=== PATIENT | female | born 1950 | race Caucasian/White ===

== ENCOUNTER 2016-09-09 10:12 | Inpatient (IN) | payer MEDICARE, MEDICAID ==
[2016-09-09] VITALS (7 sets, daily range): BP systolic 121–172; BP diastolic 71–89; PULSE 65–79; RESP 15–22; O2SAT 93–99
[~2016-09-09] VITALS: Ht 162.6 cm; Wt 89.5 kg
--- NOTE | 2016-09-09 10:15 | ED.REPORT ---
HPI-Stroke / CVA Sep 09, 2016 ED Provider: Dr. Orion Cotter M.D. A 65 year old female with a medical history including minor seizures, hypertension, diabetes, peripheral neuropathy, and spinal stenosis presents to the ED after being referred by her PCP for right arm weakness onset this morning. One month ago the patient began having balance problems which further worsened five days ago, at which time her reports that she started having trouble thinking and "wasn't making sense." Today, the patient also reports high blood pressure (176 systolic), headache, right hand numbness, epistaxis, and fatigue. Her blood pressure is normally 128-136 systolic. She takes aspirin regularly but has not had a dose today. The patient denies cough, fever, nausea, vomiting, or other symptoms. She experienced diarrhea last week which has now resolved. Nursing Notes Stated Complaint: POSS STROKE Nursing Notes Reviewed: Yes (bookjam, meds not reconciled) Allergies: Coded Allergies: egg (Verified Allergy, Intermediate, Rash, 09/09/16) morphine (Verified Allergy, Intermediate, Hives, 09/09/16) tetracycline (Verified Allergy, Intermediate, Shortness of Breath, 09/09/16 ) Scheduled Aspirin (Aspirin) 81 Mg Tablet 81 MG PO HS (Reported) Cholecalciferol (Vitamin D3) (Vitamin D3) 2,000 Unit Capsule 2,000 UNIT PO DAILY (Reported) Cyanocobalamin (Vitamin B-12) (Vitamin B-12) 500 Mcg Tab.subl 500 MCG SL DAILY ( Reported) Estradiol (Vagifem) 10 Mcg Tablet 10 MCG VAGINAL W,F (Reported) Glipizide (Glipizide) 5 Mg Tablet 2.5 MG PO BID (Reported) Hydrochlorothiazide (Hydrochlorothiazide) 25 Mg Tablet 25 MG PO BID (Reported) Lamotrigine (Lamotrigine) 100 Mg Tablet 200 MG PO BID (Reported) Levothyroxine (Levothyroxine) 75 Mcg Tablet 75 MCG PO QAM (Reported) Magnesium Oxide (Magnesium) 250 Mg Tablet 250 MG PO BID (Reported) Meloxicam (Meloxicam) 7.5 Mg Tablet 7.5 MG PO BID (Reported) Metformin (Metformin) 500 Mg Tablet 500 MG PO BID (Reported) Paroxetine (Paroxetine) 10 Mg Tablet 10 MG PO QAM (Reported) Potassium Chloride (Potassium Chloride) 10 Meq Capsule.er 10 MEQ PO QAM ( Reported) Scheduled PRN Cetirizine HCl (Zyrtec) 10 Mg Capsule 10 MG PO HS PRN PRN For Congestion ( Reported) Epinephrine (Epinephrine) 0.3 Mg/0.3 Ml Auto.injct 0.3 MG IJ ONCE PRN PRN For Anaphyllaxis (Reported) Olopatadine HCl (Olopatadine HCl) 0.1 % Drops 1 DROP AFFECT_EYE BID PRN PRN For Eye Irritation (Reported) Sumatriptan Succinate (Imitrex) 50 Mg Tablet 50 MG PO DIRECTED PRN PRN For Headache (Reported) Tizanidine (Tizanidine) 2 Mg Tablet 2 MG PO DIRECTED PRN PRN For Pain ( Reported) General Time Seen by Provider: 10:31 Chief Complaint Weakness Arm right Hx Obtained From: Patient, Spouse Arrived By: Walk-in Time last known well Five days ago, or longer Sudden in Onset?: Yes Symptom Duration: Since onset Progression Since Onset: Gradually worsening Location: : Head Quality: Painful Severity: Current: Moderate Severity: Maximum: Moderate Associated with: Reports: Confusion, Headache Pertinent Negative: Relieved by nothing Context Related History: Reports: Diabetes mellitus, Seizure disorder Context: Immunizations Tetanus up to date Recent Healthcare: No recent doctor visit Similar Sx Previous: No Risk Factors NIH Stroke Scale Level of Consciousness: Not alert, arousable (1) (Patient will open eyes to command, converses, but is slightly drowsy and does not have normal alertness throughout interview) Ask Month & Age: Both questions right (0) (But slow, gives date in odd format - "Two, zero, one, seven" for the year) Open/Close Eyes/Hand Molder Setter: Performs both tasks (0) Horizontal EO Movements: None (0) Visual Horowitz: No visual loss (0) Facial Palsy: Normal symmetry (0) (Patient refuses to smile, extraordinarily poor effort on request) Right Arm Motor Drift (10s): Some effort v gravity (2) (Initially no effort , but moments later she moves arm in FNF test) Left Arm Motor Drift (10s): No drift 10 sec (0) (Left wrist is limp, does not demonstrate normal strength, question cooperativity) Right Leg Motor Drift (5s): Some effort v gravity (2) Left Leg Motor Drift (5s): No drift 5 sec (0) Limb Ataxia FNF/Heel-Bowman: Ataxia in 2 limbs (2) (Right > Left, but dramatically misses nose, demonstrates she can lift her right arm ) Sensation (Arms/Legs/Face): P-prick dull but felt (1) Language Aphasia: Loss fluency ID matls (1) (Reads all verbiage unusually slowly but without error, but then says she "can't read last word." When naming items patient is slow and calls cactus a tree, calls hammock a bed) Dysarthria: No dysarthria, normal (0) Extinction/Inattention: No exctinct/inattent (0) NIHSS Score: 9 Time NIHSS Performed: 10:22 Date NIHSS Performed: Sep 09, 2016 Past Medical History Past Medical History Localization-related epilepsy Hypertension Diabetes type 2 Peripheral neuropathy Stenosis of cervical spine and lumbar spine Vitamin B12 deficient anaemia Past Surgical History L thumb Cholecystectomy Appendectomy Tonsillectomy Family History Stroke - father Smoking History Never Smoker Social History Other Social History: Good social support, Ambulatory Status Independent Review of Systems Review of Systems Note: + trouble thinking, high blood pressure (176 systolic) Constitutional: Reports: Fatigue, Denies: Fever Ears / Nose / Throat: Reports: Nose bleeding Respiratory: Denies: Non-productive cough, Shortness of breath GI: Reports: Diarrhea (Last week, resolved), Denies: Nausea, Vomiting Neurologic: Reports: Headache, Numbness (Right hand), Problem walking (Balance) , Weakness (Right arm) Complete sys rev & neg: except as marked. Physical Exam Initial Vital Signs Vital Signs (First) Date Time Temp Pulse Resp B/P Pulse Ox O2 Delivery O2 Flow Rate FiO2 09/09/16 10:19 36.9 69 15 172/89 99 Room Air Initial VS: Reviewed, Unavailable (none on chart yet) Skin: Warm, Dry, No cyanosis Psychiatric: Mood/affect normal, Behavior normal, Normal thought content General/Constitutional: Not toxic appearing Alertness: Positive: Responds to verb stimuli Inappropriately fatigued Head / Eyes: Atraumatic, Normocephalic, EOMI Neck: Supple, Full range of motion Respiratory / Chest: Breath sounds NL, Breath sounds = bilat, No respiratory distress Cardiovascular: Heart rate NL, Regular rhythm, Heart sounds NL Neurologic: Oriented X3, Memory NL Mental Status: Positive: Responds to verbal stim Speech: Positive: Slow Focal Weakness: Positive: Lower extremity R, Upper extremity R Sensory Deficit: Positive: Lower extremity R Cerebellar Dysfunction: Positive: Finger-nose abnl Eyes closed but opens to voice and answers questions, inappropriately fatigued See NIH Stroke Scale Interpretation & Diagnostics DIPSTICK 1.015 sp gravity 5 pH + Leukocytes Trace protein 50 Glucose Trace Blood Otherwise negative URINE DRUG SCREEN + Phencyclidine Otherwise Negative Lab Results Interpretation Result Diagram: 09/09/16 1020 09/09/16 1020 Test 09/09/16 10:20 09/09/16 10:38 09/09/16 12:07 White Blood Count 7.4th/mm3 (3.8-10.1) Red Blood Count 4.91mil/mm3 (3.90-5.20) Hemoglobin 14.0g/dL (12.0-15.6) Hematocrit 40.7% (35.0-46.0) Mean Corpuscular Volume 82.9fL (81-100) Mean Corpuscular Hemoglobin 28.5pg (27.0-35.0) Mean Corpuscular Hemoglobin Concent 34.4% (32.0-37.0) Red Cell Distribution Width 13.1% (12.3-15.4) Platelet Count 199bil/L (150-400) Neutrophils (%) (Auto) 74.3% (40-74) Lymphocytes (%) (Auto) 15.5% (14-46) Monocytes (%) (Auto) 6.9% (4-12) Eosinophils (%) (Auto) 2.0% (0-5) Basophils (%) (Auto) 0.5% (0-3) Sodium Level 137mEq/L (134-144) Potassium Level 4.1mEq/L (3.5-5.2) Chloride Level 95mEq/L (97-108) Carbon Dioxide Level 23mmol/L (18-29) Blood Urea Nitrogen 23mg/dL (8-27) Creatinine 1.09mg/dL (0.57-1.00) Estimat Glomerular Filtration Rate 72mL/min (>59) Glucose Level 196mg/dL (60-99) Calcium Level 9.5mg/dL (8.5-10.1) Total Bilirubin 0.7mg/dL (0.0-1.2) Aspartate Amino Transf (AST/SGOT) 20U/L (0-50) Alanine Aminotransferase (ALT/SGPT) 17U/L (0-32) Alkaline Phosphatase 89U/L (25-165) Total Protein 6.9g/dL (6.4-8.4) Albumin 4.4g/dL (3.4-5.0) Prothrombin Time 10.0sec (8.1-12.5) Prothromb Time International Ratio 0.94ratio Urine Color Yellow (YELLOW) Urine Appearance Hazy (CLEAR,HAZY) Urine pH 6.0 (5.0-8.0) Urine Specific [place] 1.015 (1.003-1.035) Urine Protein Negativemg/dL (NEG,TRACE) Urine Glucose (UA) 100mg/dL (NEGATIVE) Urine Ketones Negativemg/dL (NEGATIVE) Urine Occult Blood Negative (NEGATIVE) Urine Nitrite Negative (NEGATIVE) Urine Bilirubin Negative (NEGATIVE) Urine Urobilinogen Normalmg/dL (NORMAL) Urine Leukocyte Esterase Trace (NEGATIVE) Urine RBC 0-2/hpf (0-2) Urine WBC 0-5/hpf (0-5) Urine Epithelial Cells Occasional/hpf (NONE-MOD) Urine Crystals None seen (NONE SEEN) Urine Bacteria Moderate/hpf (NONE-FEW) Urine Hyaline Casts None/lpf (NONE) Urine Granular Casts None seen (NONE SEEN) Urine Waxy Casts None seen (NONE SEEN) Urine Red Blood Cell Casts None seen (NONE SEEN) Urine White Blood Cell Casts None seen (NONE SEEN) Urine Mucus None seen (None Seen) Urine Trichomonas None seen (NONE SEEN) Urine Yeast None (NONE SEEN) Urinalysis Comment None Urine Culture Reflexed Indicated Lab Results Interpretation: CBC normal CMP mild hyperglycemia INR normal struck his aspirin a send out lamotrigine level, which has been sent ECG Interpretation ECG Interpretation: Sinus rhythm rate 72 Time: 11:12 Interpreted by: ED physician X-Ray Chest Interpretation Chest Xray Interpretation: IMPRESSION: Mildly reduced inspiratory volume, no acute disease. Dictated by: Diogenes Crawford M.D. on 09/09/2016 at 10:57 View: Portable, 1 view Interpretation / Wet Read by: Interpret - Radiologist CT Head Interpretation IMPRESSION: No acute intracranial process Dictated by: Chai Lomeli M.D. on 09/09/2016 at 11:20 Study: Head CT no contrast Interpretation / Wet Read by: Interpret - Radiologist Re-Eval/Medical Decision Med Decision/Clinical Course This is a 65-year-old who presents with a complicated story. This is a patient with atypical seizures and is on lamotrigine, but is reportedly not had a seizure since 2013 and compliant with her medications. She presents stating that she been having symptoms of some confusion, and ataxia, and difficulty walking, since the weekend- so an onset time is at least 5 days ago (well outside the window for potential TPA, so the patient is not a candidate for TPA ) and the patient states her has been wanted to get in to be seen as a result of this. This morning she had a minor nosebleed quickly resolved-the states when she has had nosebleeds in the past she has often been very hypertensive, so checked her blood pressure-and it was severely elevated with a systolic of 170+. Her immediately advised her to call her PCP to get scheduled and seen. Her to the , apparently when the patient called she mentioned she was having some right arm and right leg symptoms and weakness, so she is advised to calm directly to the ED by the PCP. The drove her in , and she seemed to be getting worse, more drowsy, right arm and right leg weakness which he did not know occurring even beforehand, but he did notice they were worsening en route, so he drove recklessly to the emergency department. On arrival the patient was brought back and I examined her at first. As stated , given the timeline is greater than 24 hours emergency 5 days the patient is not a candidate for TPA. Additionally she is complaining of headaches, although not at present. On exam, the patient's initially very fatigued, keeps her eyes closed, but will answer questions and provided history, but gives a very poorly motivated exam. My attempt to have her smile, she just has a lip quivering this is despite minutes later, as well as minutes before, she is demonstrating better symmetric facial movement, but I do not overall appreciate a droop. When I go to test motor strength of the extremities, the patient makes almost no effort with the right arm, any when I lifted up its minimal effort falls right to the gurney, however within seconds of my testing, the patient spontaneously picking her arm to do the ataxia testing [id number] she dramatically has difficulties with bilaterally, and misses her nose and hits her face. But it is odd. She cannot lift her right leg up off the gurney. When I go to test speech, she is slow-but reads all of her words off the reading list without difficulty until reaching the last word-which point she states she cannot breathe at work. She is slow at identifying agents and describes the hammock as a bed, and the cactus as a tree. When asked to give the birthdate, she does so slowly, and today's date she presents in and on format of "2-0-1-7" slowl but gets it properly. Overall it some odd presentation. CT noncontrast CT was obtained and was negative. Blood work was normal except for mild hyperglycemia. While in CT scanner there was concern that the patient might have had a seizure per the CT scan staff, I was in a separate patient cannot come directly, the nurse went over and was able to give a milligram of lorazepam, but notes the patient failed an arm drop test and the nurse was not convinced there is a true seizure, and there is rapidly recovered to baseline without a sustained postictal phase. On return from CT, the patient's improved-and the patient continue to make significant improvement over the next hour or 2. By this I mean it when I go back to reexamine her she is now alert and fairly perky, as opposed to the fatigued with eyes closed. Additionally her speech is normal, she cannot use her right arm without any apparent clinical difficulty, but she persists in having right leg weakness and says she cannot lift her leg up off the gurney. The patient was indeed initially mildly hypertensive with blood pressures in the 170s, but without intervention it improved into the 140s. She does not meet criteria for medication administration in the setting of a potential stroke per hospital policy at this time. Certainly her overall presentation is concerning for the possibility of a stroke , presentation however is overall unusual. Seizure and/or psychogenic components are also possible in the differential. As stated above for multiple reasons the patient does not meet TPA criteria. The patient's only followed by the neurologist Dr. Latrice Vásquez, and given the unusual presentation I have consulted partner Dr. hill who is customer service consultant. This point the plan is admission with MRI to continue and complete the stroke evaluation. Dr. hill is requested a lamotrigine level be sent, and so this has been added labs. At time of admission, patient's been marked improvement as described above, but still has ongoing deficits of the R leg. The patient has been seen by speech therapy. The patient has already had low dose aspirin today. (In my opinion I think it makes sense to hold off until the MRI is completed for the data is available to determine not a change to clopidogrel or other medications is indicated) Source of Hx: Old records Re-Evaluation/Progress #1: Time of Eval: 11:19 )( Re-Eval Neurologic Exam: Motor deficit present (Weakness on the right, improved) Patient Status: Condition improved Re-Evaluation/Progress Note: Patient is more alert and coherent. Her headache is still present but feels better. There was concern of a small seizure while in CT but the patient only reports experiencing an aura. Re-Evaluation/Progress #2: Time of Eval: 13:04 Patient Status: Condition improved Re-Evaluation/Progress Note: Patient is dramatically improved. She is alert, not drowsy, and has no right arm weakness. However, she is still experiencing right leg weakness. Discussed with patient and her x-ray and CT results, diagnosis, and plan for admit. Patient agrees with plan for care and all questions were addressed. Consultation #1: Referral / Consult Name: Jin Hill MD Consulted With: Neurology Call Returned at: 12:25 Cream Hauler: Will see patient, Agrees with eval, Agrees with plan Note: Discussed patient's case in length. Will consult Consultation #2: Referral / Consult Name: Sharif Rousseau DO Consulted With: Hospitalist Call Returned at: 12:38 Cream Hauler: Agrees with eval, Agrees with plan, Accepts admit Differential Diagnosis: Positive: Cerebrovascular accident, Seizure disorder, Negative: Atrial fibrillation, Atypical migraine, Electrolyte disorder, Epidural hemorrhage, Hepatic encephalopathy, Hypoglycemia, Intraparench hemorrhage, Meningitis, Sepsis, Subarachnoid hemorrhage, Subdural hemorrhage, Systemic infection Counseled Regarding: Diagnosis, Need for admission Patient Discharge & Departure Impression: Primary Impression: CVA (cerebral vascular accident) CVA mechanism: unspecified Qualified Code: I63.9 - Cerebral infarction, unspecified Additional Impressions: Right sided weakness Hypertension Hypertension type: unspecified secondary hypertension Hypertension goal: unspecified goal Qualified Code: I15.9 - Secondary hypertension, unspecified Epilepsy Epilepsy type: unspecified Intractability: not intractable Status epilepticus: without status epilepticus Qualified Code: G40.909 - Epilepsy, unspecified, not intractable, without status epilepticus Disposition: ADMITTED TO HOSPITAL Discharge Condition All VS Reviewed: Yes Condition: Stable Referrals: Becky Leavitt (PCP) Scribe Attestation Portions of this note were transcribed by Lisandra Avila. I, Dr. Cotter, personally performed the history, physical exam, and medical decision-making; I reviewed and confirmed the accuracy of the information in the transcribed note. Signed by: Liliana Khoury, 09/09/2016, 13:37 copies to: Becky Leavitt Matthew F MD Sep 09, 2016 10:15 LISANDRA AVILA Sep 09, 2016 10:52
[2016-09-09 10:36] LABS: BASOPHILS % (AUTO) 0.5 % (0-3); MONOCYTES % (AUTO) 6.9 % (4-12); Mean Corpuscular Hemoglobin 28.5 pg (27.0-35.0); Mean Corpuscular Volume 82.9 fL (81-100); NEUTROPHILS % (AUTO) 74.3 % (40-74); Platelet Count 199 bil/L (150-400)
[2016-09-09 10:51] LABS: INR 0.94 ratio
--- NOTE | 2016-09-09 10:58 | DRSVH ---
PROCEDURE: X-RAY CHEST ONE VIEW, PORTABLE ([id number]) INDICATIONS: weakness TECHNIQUE: One view of the chest was acquired. COMPARISON: [facility], CR, CHEST 1VW (PORTABLE), 09/13/2012, 12:02. FINDINGS: Surgical changes and devices: None. Lungs and pleura: No pleural effusions or pneumothorax. Lungs are clear. Mediastinum: Mediastinal contours appear normal. Heart size is normal. Bones and chest wall: No suspicious bony lesions. Overlying soft tissues appear unremarkable. IMPRESSION: Mildly reduced inspiratory volume, no acute disease. Dictated by: Diogenes Crawford M.D. on 09/09/2016 at 10:57 Approved by: Diogenes Crawford M.D. on 09/09/2016 at 10:57
--- NOTE | 2016-09-09 11:21 | DRSVH ---
PROCEDURE: CT BRAIN WITHOUT CONTRAST ([id number]) INDICATIONS: r side weakness TECHNIQUE: Noncontrast 4.5 mm thick angled axial sections acquired from the foramen magnum to the vertex, with c oronal reformats. COMPARISON: [facility], CT, BRAIN W/O CONTRAST, 01/26/2013, 15:58. FINDINGS: Image quality: Excellent. CSF spaces: Basal cisterns are patent. No extra-axial fluid collections. The ventricles are symmet ina in size and shape. Brain: No intracranial bleeds or masses. There is cerebral volume loss for age, with resultant vent ricular and sulcal prominence. There are periventricular and deep white matter chronic small vessel ischemic changes. There is intracranial internal carotid artery atherosclerosis. Skull and face: Calvarium and visualized facial bones appear intact, without suspicious lesions. Sinuses: Visualized sinuses and mastoids are clear. IMPRESSION: No acute intracranial process Dictated by: Chai Lomeli M.D. on 09/09/2016 at 11:20 Approved by: Chai Lomeli M.D. on 09/09/2016 at 11:20
[2016-09-09 12:42] LABS: APPEARANCE,URINE HAZY (CLEAR,HAZY); COLOR,URINE YELLOW (YELLOW); OCCULT BLOOD,URINE NEGATIVE (NEGATIVE); UROBILINOGEN,URINE NORMAL (NORMAL)
[2016-09-09] MEDS ORDERED: Alum-Mag Hydrox-Simeth 30 mL Suspension PO PRN (12:45)
[2016-09-09] MEDS ORDERED: Polyethylene Glycol (PEG) 17 Gm Powder PO PRN (12:45)
[2016-09-09] MEDS ORDERED: Ondansetron 2 mg/mL 2 mL Inj IV PRN (12:45)
[2016-09-09] MEDS ORDERED: Labetalol 5 mg/mL 4 mL Inj IVPUSH PRN (12:45)
[2016-09-09] MEDS ORDERED: EPIN0.3P17 IJ (13:50)
[2016-09-09] MEDS ORDERED: ASPI-973 PO (13:50)
[2016-09-09] MEDS ORDERED: LAMO100T2 PO (13:50)
[2016-09-09] MEDS ORDERED: SUMA50TA31 PO (13:50)
[2016-09-09] MEDS ORDERED: HYDR25TA4 PO (13:50)
[2016-09-09] MEDS ORDERED: GLPZ5T PO (13:50)
[2016-09-09] MEDS ORDERED: CETI10CA PO (13:50)
[2016-09-09] MEDS ORDERED: METF500T4 PO (13:54)
[2016-09-09] MEDS ORDERED: MELO-259 PO (13:54)
[2016-09-09] MEDS ORDERED: MAGN250T29 PO (13:54)
[2016-09-09] MEDS ORDERED: LEVO75TA4 PO (13:54)
[2016-09-09] MEDS ORDERED: OLOP5DRO8 AFFECT_EYE (13:54)
[2016-09-09] MEDS ORDERED: CYAN500T53 SL (13:58)
[2016-09-09] MEDS ORDERED: ESTR10TA VAGINAL (13:58)
[2016-09-09] MEDS ORDERED: PARO10TA2 PO (13:58)
[2016-09-09] MEDS ORDERED: POTA10CA42 PO (13:58)
[2016-09-09] MEDS ORDERED: CHOL200047 PO (13:59)
[2016-09-09] MEDS ORDERED: TIZA2TAB3 PO (14:00)
--- NOTE | 2016-09-09 14:17 | NUR ---
Admit nurse note Partial admission assessment completed in the ER. Pt. denies complaints now. Med rec completed per PCP notes and Pharmacy list. Allergies verified and allergy sticker placed. Pt. declines vaccines due to egg allergy. Pt. oriented to room and plan of care.
--- NOTE | 2016-09-09 17:17 | PCM.HPMED ---
Subjective Date of Service Sep 09, 2016 Primary Provider: Admitting Physician: Sharif Rousseau DO Primary Care Physician: Becky Leavitt Attending Physician: Sharif Rousseau DO Admit Status: From the Emergency Department, Admit to Blue Team Chief Complaint: Possible CVA with right arm weakness History of Present Illness: Patient is a pleasant 65 year old female with a medical history significant for minor seizures, hypertension, DM2, and hypothyroidism, presents to ED with sudden onset of right sided weakness while on her way to PT session for her hip pain at [facility]. Patient called her PCP and was advised to go to ED. Patient states her has been noticing patient stumbling, speech abnormalities with patient reports of noticing having difficulty spelling words and writing checks for the past month. Confusion, imbalance, lethargy increased greatly in this past week. Patient also had one episode epistaxis today. Patient states her systolic BP readings at home has been in the mid 130s. Patient denies cough, SOB , fevers, chills, nausea, vomiting, or other symptoms. Patient is followed by Dr. Cabrera for her seizures. In the ED, patient with BP 172/99. Labs significant for creatinine 1.09 and glucose 196, otherwise normal. UA with trace leukocytes, sent for culture. CT brain negative for acute process. Patient admitted and stroke protocol activated. Review of Systems: All ROS reviewed and negative with exception of what is reported in HPI. Allergies Coded Allergies: egg (Verified Allergy, Intermediate, Rash, 09/09/16) morphine (Verified Allergy, Intermediate, Hives, 09/09/16) tetracycline (Verified Allergy, Intermediate, Shortness of Breath, 09/09/16 ) Home Medications Aspirin (Aspirin) 81 Mg Tablet 81 MG PO HS (Reported) Glipizide (Glipizide) 5 Mg Tablet 2.5 MG PO BID (Reported) Hydrochlorothiazide (Hydrochlorothiazide) 25 Mg Tablet 25 MG PO BID (Reported) Lamotrigine (Lamotrigine) 100 Mg Tablet 200 MG PO BID (Reported) Levothyroxine (Levothyroxine) 75 Mcg Tablet 75 MCG PO QAM (Reported) Magnesium Oxide (Magnesium) 250 Mg Tablet 250 MG PO BID (Reported) Meloxicam (Meloxicam) 7.5 Mg Tablet 7.5 MG PO BID (Reported) Metformin (Metformin) 500 Mg Tablet 500 MG PO BID (Reported) Scheduled PRN Cetirizine HCl (Zyrtec) 10 Mg Capsule 10 MG PO HS PRN PRN For Congestion ( Reported) Epinephrine (Epinephrine) 0.3 Mg/0.3 Ml Auto.injct 0.3 MG IJ ONCE PRN PRN For Anaphyllaxis (Reported) Olopatadine HCl (Olopatadine HCl) 0.1 % Drops 1 DROP AFFECT_EYE BID PRN PRN For Eye Irritation (Reported) Sumatriptan Succinate (Imitrex) 50 Mg Tablet 50 MG PO DIRECTED PRN PRN For Headache (Reported) PMH Localization-related epilepsy Hypertension Diabetes type 2 Peripheral neuropathy Stenosis of cervical spine and lumbar spine Vitamin B12 deficient anaemia Surgical History L thumb Cholecystectomy Appendectomy Tonsillectomy Family History Stroke - father Social History Hx Alcohol Use: No Hx Substance Use: No Smoking Status: Never Smoker Living Arrangement: with Family Exam Vital Signs Vital Sign - Last Date Time Temp Pulse Resp B/P Pulse Ox O2 Delivery O2 Flow Rate FiO2 09/09/16 14:37 70 20 141/80 93 Room Air 09/09/16 12:55 36.9 Exam Gen: NAD, laying comfortably in bed HEENT: NCAT. PERRL, EOMI No sclera icterus. Neck supple, pink mucous membranes Cardio: Regular rate and rhythm, no murmurs appreciated. . Lungs: CTAB Abd: Soft, obese, non-tender, normal bowel tones Ext: No edema, no clubbing. Skin: Warm, dry and intact Psych: Alert and oriented, normal speech, normal mood and affect Neuro: CN II-XII grossly intact. Facial sensation decreased on right. Decreased hearing on left. Delayed and inaccurate finger to nose, hand flap, and lazar to ankle motions on right. Negative rhomberg.4/5 supervisor spinning strength on right, otherwise 5/5 strength and sensation intact throughout all extremities. Otherwise no focal neuro deficits. Lab and Diagnostics Result Diagram: 09/09/16 1020 09/09/16 1020 X-Rays, CTs and MRIs Date of Service: 09/09/16 1026 PROCEDURE: X-RAY CHEST ONE VIEW, PORTABLE ([id number]) IMPRESSION: Mildly reduced inspiratory volume, no acute disease. Dictated by: Diogenes Crawford M.D. on 09/09/2016 at 10:57 Date of Service: 09/09/16 1026 PROCEDURE: CT BRAIN WITHOUT CONTRAST ([id number]) INDICATIONS: r side weakness IMPRESSION: No acute intracranial process Dictated by: Chai Lomeli M.D. on 09/09/2016 at 11:20 Assessment & Plan 65 year old female with hx of minor seizures, hypertension, diabetes, peripheral neuropathy, and spinal stenosis presents to the ED after being referred by her PCP for right arm weakness onset this morning. Associated symptoms of high blood pressure (176 systolic), headache, right hand numbness, epistaxis, and fatigue. Admitted for possible CVA. Elevated blood pressures with headache and right sided weakness, present on admission. Active. -Ddx: Possible CVA, can not rule out seizures since patient has hx of minor seizures with last one being last summer, MS also a possibility -NIHSS scale 9 -CXR, CT brain negative for any acute process -MRI brain pending -Appreciate neurology consult with time and expertise - patient seen by Dr. Cabrera for her seizures -telemetry -PT/OT/speech swallow eval pending Hypertension, present on admission. Active. -continue home dose HCTZ Diabetes mellitus Type 2 -metformin and glipizide held -medium correctional dose insulin protocol Spinal stenosis with chronic back pain -continue home dose meloxicam Hx of minor seizures -continue home dose lamotrigine Hypothyroidism -continue home med Allergic eyes -continue home med DVT prophy: Heparin SubQ, SCD GI prophy: not indicated CODE: FULL Dispo: Anticipate discharge in 1-2 days. GI Prophylaxis: Not indicated VTE Prophylaxis: Sub-Q Heparin (Unfractionated) Resuscitation Status: CPR: Attempt Resuscitation Time spent 45 minutes Attending Statement I have seen and evaluated patient at bedside in addition to directly supervising care provided by resident physician. I agree with above documentation. Malorie Collins DO Sep 09, 2016 16:17 Sharif Rousseau DO Sep 10, 2016 09:02
[2016-09-09] MEDS ORDERED: TIZANIDINE 2 MG PO PRN (17:35)
[2016-09-09] MEDS ORDERED: OLOPATADINE HCL AFFECT_EYE PRN (17:35)
[2016-09-09] MEDS ORDERED: Glucose 40% Oral Gel 15 Gm Tube PO PRN (17:55)
--- NOTE | 2016-09-09 19:50 | NUR ---
Admit to [facility] Pt admitted to room 3011. Pt denies any pain, VSS, Tele SR. Pt able to transfer to [facility] without difficulty but does express that she is weaker. Reviewed plan of care and fall precautions with pt. Stressed importance of using call light for all needs and transfers out of bed. CVA booklet provided and reviewed with pt. Pt calm and coop with care.
--- NOTE | 2016-09-09 20:05 | DRSVH ---
PROCEDURE: MRI STROKE PROTOCOL ([id number]) Pre- and post-contrast brain MRI, non-contrast brain MR angiogram, pre- and postcontrast neck MR mayra ogram INDICATIONS: R weakness TECHNIQUE: Brain: Noncontrast axial T1 spin echo, axial T2 fast spin echo, sagittal and axial FLAIR, coronal T2 fast spin echo, axial gradient echo, axial diffusion and ADC through the brain. After the administr ation of contrast, axial 3D VIBE of the cranial vasculature and brain. Brain MRA: Non-contrast 3-D time of flight MR angiogram, with multiple lmkgawz-uatcfxota-smnksakrbf (MIP) reformats performed. Neck MRA: Axial and sagittal TruFISP through the neck. Coronal dynamic MR angiogram during administ ration of contrast in the arterial and venous phases, with 3-dimenstional wtfbbua-guvmcdzsr-pgwalgfso n (MIP) reformats constructed from subtraction images. COMPARISON: [facility], CT, CT BRAIN WO CON, 09/09/2016, 10:40. FINDINGS: Image quality: Limited by motion artifact. BRAIN: CSF spaces: Ventricles are normal in size and shape. Basal cisterns are patent. No extra-axial flu id collections. Brain: No intracranial bleeds or mass effects. Ramirez-white matter interface is normal. Diffusion we ighted images show no acute ischemic insults. A few, small, punctate foci of increased T2 signal are noted in the frontal periventricular and subcortical white matter tracts. Brainstem appears normal. Normal intravascular flow voids are present. No abnormal intracranial enhancement. Normal enhanceme nt of the dural sinuses is noted. Skull and face: Calvarial marrow signal is normal. Orbits appear normal. Sinuses: Sinuses and mastoids are clear. BRAIN MR ANGIOGRAM: Anterior circulation: Intracranial internal carotid arteries are normal in size and enhancement. Th e flow within the paired anterior cerebral arteries is normal and symmetric. The flow within the mid dle cerebral arteries is normal and symmetric. The anterior communicating artery is seen. No stenos es, occlusions, or aneurysms. Posterior circulation: The visualized portions of the vertebral arteries demonstrate normal caliber, and join to form a normal appearing basilar artery. The flow within the posterior cerebral arteries is normal and symmetric. The P1 segment of the right posterior cerebral artery congenitally hypopla stic. Normal flow is noted in the posterior communicating arteries bilaterally. No stenoses, occlusi ons, or aneurysms. NECK MR ANGIOGRAM: Carotids: Great vessels demonstrate a conventional anatomy as they arise from the aortic arch. The origins of the common carotid arteries appear patent. The calibers and courses of both common caroti d arteries are normal. The bifurcation regions appear normal bilaterally. The internal carotid cruz britt demonstrate normal course and caliber. Posterior circulation: The origins of the vertebral arteries appear patent. More superior portions of both vertebral arteries demonstrate normal course and caliber, and join to form a normal appearing basilar artery. Miscellaneous: Subclavian arteries appear patent. Pre-contrast images through the neck show no soft tissue abnormalities. IMPRESSION: BRAIN MRI: 1. No acute intracranial disease process. 2. No areas of acute or chronic infarction. 3. Mild, diffuse volume loss. 4. Minimal periventricular and subcortical white matter chronic microvascular ischemic changes. BRAIN MR ANGIOGRAM: Negative examination. NECK MR ANGIOGRAM: Negative examination. The estimate of stenosis included in the report of the imaging study was calculated using the NASCET method Dictated by: Xochilt Torres MD, PhD on 09/09/2016 at 20:03 Approved by: Xochilt Torres MD, PhD on 09/09/2016 at 20:03
--- NOTE | 2016-09-09 20:18 | NUR ---
Case Management: ZEV explained to patient at 1999, all questions answered. Signed copy placed in chart, pt given a copy. "How Medicare Covers Self-Administered Drugs Given in Hospital Outpatient Settings" given to patient. Vicky Dumas RN
[2016-09-09] MEDS: Insulin LISPRO 300 Unit/3 mL Inj SUBQ SCH (21:26)
[2016-09-09] MEDS: lamoTRIgine 100 mg Tablet PO SCH (21:27)
[2016-09-10] VITALS (7 sets, daily range): BP systolic 123–152; BP diastolic 66–83; PULSE 63–73; RESP 16–20; O2SAT 96–98
[2016-09-10 06:04] LABS: Mean Corpuscular Hemoglobin 28.7 pg (27.0-35.0); Mean Corpuscular Volume 83.4 fL (81-100)
[2016-09-10] MEDS: PARoxetine 20 mg Tablet PO SCH (10:15)
[2016-09-10] MEDS: lamoTRIgine 100 mg Tablet PO SCH ×2 (10:15→20:46)
[2016-09-10] MEDS: Insulin LISPRO 300 Unit/3 mL Inj SUBQ SCH ×4 (10:31→22:00)
--- NOTE | 2016-09-10 10:41 | PCM.PNMED ---
Subjective Date of Service Sep 10, 2016 Subjective No overnight events. Patient with no complaints. Interested to know the results of her MR imaging. Denies GRANDE, vision changes, nausea or vomiting. Exam Vital Signs Vital Sign - Last Date Time Temp Pulse Resp B/P Pulse Ox O2 Delivery O2 Flow Rate FiO2 09/10/16 06:09 73 09/10/16 04:37 36.4 18 152/69 97 Room Air Intake and Output 09/09/16 09/09/16 09/10/16 Cumulative From/Thru 15:00 23:00 07:00 09/09/16 10:19 - 09/10/16 06:32 Intake Total 400 ml 400 ml Balance 400 ml 400 ml Intake Oral 400 ml 400 ml # Voids 5 5 # Bowel Movements 0 0 Exam Gen: NAD, laying comfortably in bed HEENT: NCAT. PERRL, EOMI No sclera icterus. Neck supple, pink mucous membranes Cardio: Regular rate and rhythm, no murmurs appreciated. . Lungs: CTAB Abd: Soft, obese, non-tender, normal bowel tones Ext: No edema, no clubbing. Skin: Warm, dry and intact Psych: Alert and oriented, normal speech, normal mood and affect Neuro: CN II-XII grossly intact. Facial sensation mildly decreased on right .4/ 5 drawer in strength on right, otherwise 5/5 strength and sensation intact throughout all extremities. Otherwise no focal neuro deficits. IVs and Medications Medications Reviewed: Medications were reviewed in detail Lab and Diagnostics Result Diagram: 09/10/16 0510 09/10/16 0510 X-Rays, CTs and MRIs Date of Service: 09/09/16 1026 PROCEDURE: X-RAY CHEST ONE VIEW, PORTABLE ([id number]) IMPRESSION: Mildly reduced inspiratory volume, no acute disease. Dictated by: Diogenes Crawford M.D. on 09/09/2016 at 10:57 Date of Service: 09/09/16 1026 PROCEDURE: CT BRAIN WITHOUT CONTRAST ([id number]) INDICATIONS: r side weakness IMPRESSION: No acute intracranial process Dictated by: Chai Lomeli M.D. on 09/09/2016 at 11:20 Assessment & Plan 65 year old female with hx of minor seizures, hypertension, diabetes, peripheral neuropathy, and spinal stenosis presents to the ED after being referred by her PCP for right arm weakness onset this morning. Associated symptoms of high blood pressure (176 systolic), headache, right hand numbness, epistaxis, and fatigue. Admitted for possible CVA. Elevated blood pressures with headache and right sided weakness, present on admission. Improving. -Ddx: Possible CVA, can not rule out seizures since patient has hx of minor seizures with last one being last summer, MS also a possibility -NIHSS scale 9 -CXR, CT brain negative for any acute process -MRI brain negative for any acute process -Appreciate neurology consult with time and expertise - patient followed by Dr. Borden for her seizures -telemetry -Speech swallow passed -PT/OT eval pending Hypertension, present on admission. Active. -continue home dose HCTZ Diabetes mellitus Type 2 -metformin and glipizide held -medium correctional dose insulin protocol Spinal stenosis with chronic back pain -continue home dose meloxicam Hx of minor seizures -continue home dose lamotrigine Hypothyroidism -continue home med Allergic eyes -continue home med DVT prophy: Heparin SubQ, SCD GI prophy: not indicated CODE: FULL Dispo: Anticipate discharge in 1-2 days. GI Prophylaxis: Not indicated VTE Prophylaxis: Sub-Q Heparin (Unfractionated) Resuscitation Status: CPR: Attempt Resuscitation Time spent 30 minutes Attending Statement I have seen and evaluated patient at bedside and directly supervised care provided by resident physician. I agree with above documentation. Malorie Collins DO Sep 10, 2016 09:43 Sharif Rousseau DO Sep 10, 2016 10:41
--- NOTE | 2016-09-10 17:13 | NUR ---
Inpatient status effective today, [facility] signed
--- NOTE | 2016-09-10 20:01 | CONS ---
[address] [address] CONSULTATION REPORT PATIENT: MOY BRAVO : 1950 MR#: [id number] ADMIT: 09/09/2016 JOB ID: [id number] DATE OF SERVICE: 09/10/2016 NEUROLOGY CONSULTATION: CHIEF COMPLAINT: Multiple neurologic symptoms. REQUESTING PROVIDER: Dr. Orion Cotter HISTORY OF PRESENTING ILLNESS: The patient is a very pleasant, 65-year-old woman who is a patient of my partner, Dr. Jennifer Cabrera, with multiple medical problems, including a history of peripheral neuropathy, spinal stenosis, and a history of seizure disorder, who presented to the emergency department after being referred by her primary care physician to seek emergency attention for various neurologic symptoms. Dr. Orion Cotter contacted me from the emergency department. Reportedly approximately one month ago the patient started noticing having difficulty with balance. She noted that five days ago her imbalance worsened and her noted confusion. She herself also noted the sudden onset of right arm weakness. She reports that she checks her blood pressures on a regular basis and noted that her blood pressure has recently been elevated. She also noted the development of a headache, right upper extremity weakness, epistaxis, and fatigue. She reports that her blood pressures are generally run from 120-130 systolic. She takes aspirin on a daily basis. Reportedly she developed diarrhea last week which has now resolved. She has noted confusion, imbalance, and lethargy, which increased this past week. She does report that she occasionally has auras, however has not noted a generalized tonic-clonic seizure prior to arriving in the emergency department. When she was seen in the emergency department, the emergency department physician noted that she would open her eyes to command and converse, but was noted to be slightly drowsy and appeared confused. She was also noted to have right upper and right lower extremity weakness and reportedly also appeared to have slowed cognition when he performed the NIH stroke scale, which he gave a score of 9. A CT of her head was performed which was unremarkable. A Lamictal level was ordered. There was a concern for a possible stroke. Today when I saw the patient and this morning she reports that she is back to her baseline. She reports no history of transient ischemic attacks or strokes. Incidentally she does report that she had a generalized tonic-clonic seizure which occurred when she was coming back from the CT scan. She reports that she has not had any recent seizure in over a year. She reports today that she feels back to her baseline and has not noted any new neurologic symptoms. She denies any headache presently. LABORATORY STUDIES: WBC of 7.4, hemoglobin 14.0, hematocrit 40.7, and platelets of 199. Neutrophils 74.3%. Chemistries: Sodium 137, potassium 4.1, chloride 95, bicarb 23, BUN 23, creatinine 1.09, and glucose of 196. LFTs were within normal limits. TSH 0.998. Lamotrigine pending. A urinalysis hazy with occasional urine epithelial cells, otherwise unremarkable. PT was 10.0, INR 0.94. Chest x-ray: Mildly reduced inspiratory volume. No acute disease. CT of her head: No acute intracranial process. I reviewed her MRI stroke protocol in detail which demonstrated no acute intracranial disease process. No areas of acute or chronic infarction. Mild diffuse volume loss. Minimal periventricular and subcortical white matter chronic microvascular ischemic changes. No evidence of stenosis on her MRA of the brain and neck. Urine culture: Mixed urogenital nolan. PAST MEDICAL HISTORY: Remarkable for seizure disorder, hypertension, diabetes mellitus type 2, peripheral neuropathy, cervical and lumbar stenosis, vitamin B12 deficient anemia. PAST SURGICAL HISTORY: Surgery on her left thumb, cholecystectomy, appendectomy, tonsillectomy. FAMILY HISTORY: Stroke in her father. SOCIAL HISTORY: No tobacco, alcohol, or drugs. Lives with her family. ALLERGIES: EGG, MORPHINE, AND TETRACYCLINE. HOME MEDICATIONS: Aspirin 81 mg, glipizide 2.5 mg p.o. b.i.d., hydrochlorothiazide 25 mg p.o. b.i.d., lamotrigine 200 mg p.o. b.i.d., levothyroxine 75 mcg p.o. q.a.m., magnesium oxide 250 mg p.o. b.i.d., meloxicam 7.5 mg p.o. b.i.d., and metformin 500 mg p.o. b.i.d. She also takes the following p.r.n.: Zyrtec, epinephrine, olopatadine, and Imitrex. REVIEW OF SYSTEMS: A complete review of systems was performed and was remarkable for above noted. PHYSICAL EXAMINATION: Temperature 36.4, pulse of 67, respiratory rate of 18, blood pressure 152/69, pulse oximetry 97% on room air. General: She is a well-developed, well-nourished woman in no acute distress. Head: Normocephalic, atraumatic. Neck: Supple. No carotid bruits were auscultated. Chest: Clear to auscultation. Heart: Regular rate and rhythm. Abdomen: Soft, nondistended, nontender. Extremities: No cyanosis, clubbing, or edema. NEUROLOGIC EXAMINATION: Mental status: She is awake, alert, and oriented x3. Speech clear and fluent, with intact comprehension. There was no aphasia. Cranial nerves: Pupils equal, round, and reactive to light. Extraocular movements were smooth and conjugate, with no evidence of nystagmus. Face appeared symmetrical. Facial sensation was intact to light touch and temperature. Auditory sensation was intact to finger rub. Palatal elevation was symmetrical. Tongue was midline. Sternocleidomastoid and trapezii are 5/5 bilaterally. There was no dysarthria. Motor: Normal tone and bulk. Muscle strength 5/5 throughout. Sensation was intact to light touch and temperature, with the exception of in a bilateral stocking distribution in the distal lower extremities where it diminished to light touch, temperature, and pinprick. There was no pronator drift noted. Coordination: Mvmrwe-iu-coks was intact, without evidence of dysmetria. Deep tendon reflexes were 1+ in the upper extremities, 2+ at the patellae bilaterally, trace at the Achilles bilaterally. Plantars demonstrated withdrawal bilaterally. Gait was deferred. ASSESSMENT AND RECOMMENDATION: Given her clinical history, especially her history of localization-related seizure disorder, my concern is that this may have been a seizure followed by Glenroy's paralysis. My recommendation is that she continue seizure medications. We are awaiting a Lamictal level. It is unclear from the history what may have lowered her seizure threshold. I would continue to optimize control of her potential TIA/stroke risk factors including diabetes and hypertension. In the differential also is a complicated migraine. Although a transient ischemic attack could certainly present in a similar fashion, it appears less likely given the clinical history, today's physical examination, and review of MR imaging studies. My recommendation would be to continue Lamictal and to optimize control of stroke risk factors. In the event that this does represent a transient ischemic attack, my recommendation would be to continue to optimize control of her diabetes, which is her primary stroke risk factor, as well as her hypertension, although her blood pressures here have only remained mildly elevated. Another possibility is a form of hypertensive encephalopathy; however, usually this is noted when blood pressures are significantly higher than the blood pressures that have been measured here and were documented as measured at home. I also do recommend seizure and fall precautions. We did discuss driving, heights, and swimming alone. On review of records in her chart it appears that a generalized tonic-clonic seizure was witnessed by nursing staff and the ultrasound technician. The patient was reportedly noted to have a generalized tonic-clonic seizure and was noted to have a failed arm drop test. Ativan 1 mg was given and reportedly seizure activity stopped after 2 minutes. At that time, she was connected to a display fabrication supervisor and vital signs were noted to be stable. In light of this information, I suspect that the stroke-like symptoms noted in the emergency department may have been Glenroy's paralysis associated with a postictal state. I would recommend that she stay overnight one more night for closer observation neurologically. I would recommend seizure and fall precautions. She reports no history of fevers, chills, nausea or vomiting, or neck stiffness or neck pain. Examination reveals a negative Kernig and a negative Brudzinski. There is no white count noted. There is no evidence of fever. We are presently awaiting a Lamictal level. If she does have another seizure, I would recommend loading with Keppra 1000 mg IV followed by maintenance Keppra 500 mg twice daily. We discussed the differential diagnosis for her symptoms in detail. I reviewed her imaging studies with her. I recommend that she follow up with her primary care provider within one week and follow up with Dr. Cabrera as an outpatient in the Neurology Clinic. Thank you, again, for this consultation, Dr. Orion Cotter. Please feel free to contact me with any questions or concerns. PRIMITIVO
[2016-09-11 01:25] VITALS: BP 128/74; PULSE 64; RESP 18; O2SAT 98
[2016-09-11 04:28] VITALS: BP 161/84; PULSE 73; RESP 16; O2SAT 96
[2016-09-11 05:50] VITALS: PULSE 65
[2016-09-11 06:49] LABS: Mean Corpuscular Hemoglobin 28.6 pg (27.0-35.0); Mean Corpuscular Volume 83.4 fL (81-100)
[2016-09-11] MEDS: PARoxetine 20 mg Tablet PO SCH (08:06)
[2016-09-11] MEDS: lamoTRIgine 100 mg Tablet PO SCH (08:08)
[2016-09-11] MEDS: Insulin LISPRO 300 Unit/3 mL Inj SUBQ SCH ×2 (08:10→11:35)
[2016-09-11] MEDS ORDERED: LISI-571 PO (11:27)
--- NOTE | 2016-09-11 11:35 | PCM.DIMED ---
Malorie Collins DO 09/11/16 1126: Discharge Instructions Date of Service Sep 11, 2016 Dates of Hospitalization Sep 09, 2016 at 13:48 Discharge Diagnosis Discharge Diagnosis Elevated blood pressures with headache and right sided weakness, present on admission. Hypertension, present on admission. Diabetes mellitus Type 2 Spinal stenosis with chronic back pain Hx of minor seizures Hypothyroidism Allergic eyes Medication Instructions New medication: Lisinopril 5mg PO daily Diet Diabetic Activity Limited until seen by PCP Call your provider Chest pain, Weakness (unilateral) Patient Instructions We have added one new medication during this hospitalization. Lisinopril 5mg one daily by mouth. Please follow up with your PCP, Becky Leavitt in 2 weeks. You have an appointment with your neurologist, Dr. Cabrera in November, please call to see if you can get in sooner if symptoms reoccur. Go to the ED if you have any sudden onset of headaches, vision changes, unilateral weakness or chest pain. Follow-up plan Patient to have outpatient physical therapy. Follow-up Provider: Becky Leavitt Follow-up with PCP in: 2 weeks Sharif Rousseau DO 09/11/16 1507: Discharge Instructions Attending's Statement Read and agree Malorie Collins DO Sep 11, 2016 11:26 Sharif Rousseau DO Sep 11, 2016 15:07
--- NOTE | 2016-09-11 11:39 | PCM.DC.MED ---
Discharge Summary Date of Service Sep 11, 2016 Dates of Hospitalization Date of Hospital Admission Sep 09, 2016 at 13:48 Date of Discharge: Sep 11, 2016 Providers: Admitting Physician: Sharif Rousseau DO Primary Care Physician: Becky Leavitt Attending Physician: Sharif Rousseau DO Diagnosis at Time of Discharge Diagnosis at Time of Discharge Elevated blood pressures with headache and right sided weakness, present on admission. Hypertension, present on admission. Diabetes mellitus Type 2 Spinal stenosis with chronic back pain Hx of minor seizures Hypothyroidism Allergic eyes Consultations Neurology: Jin Cox MD Procedures XRay, CTs & MRIs Date of Service: 09/09/16 1026 PROCEDURE: X-RAY CHEST ONE VIEW, PORTABLE ([id number]) IMPRESSION: Mildly reduced inspiratory volume, no acute disease. Dictated by: Diogenes Crawford M.D. on 09/09/2016 at 10:57 Date of Service: 09/09/16 1026 PROCEDURE: CT BRAIN WITHOUT CONTRAST ([id number]) INDICATIONS: r side weakness IMPRESSION: No acute intracranial process Dictated by: Chai Lomeli M.D. on 09/09/2016 at 11:20 Date of Service: 09/09/16 1245 PROCEDURE: MRI STROKE PROTOCOL ([id number]) Pre- and post-contrast brain MRI, non-contrast brain MR angiogram, pre- and postcontrast neck MR angiogram IMPRESSION: BRAIN MRI: 1. No acute intracranial disease process. 2. No areas of acute or chronic infarction. 3. Mild, diffuse volume loss. 4. Minimal periventricular and subcortical white matter chronic microvascular ischemic changes. BRAIN MR ANGIOGRAM: Negative examination. NECK MR ANGIOGRAM: Negative examination. The estimate of stenosis included in the report of the imaging study was calculated using the NASCET method Dictated by: Xochilt Torres MD, PhD on 09/09/2016 at 20:03 Brief History Patient is a pleasant 65 year old female with a medical history significant for minor seizures, hypertension, DM2, and hypothyroidism, presents to ED with sudden onset of right sided weakness while on her way to PT session for her hip pain at [facility]. Patient called her PCP and was advised to go to ED. Patient states her has been noticing patient stumbling, speech abnormalities with patient reports of noticing having difficulty spelling words and writing checks for the past month. Confusion, imbalance, lethargy increased greatly in this past week. Patient also had one episode epistaxis today. Patient states her systolic BP readings at home has been in the mid 130s. Patient denies cough, SOB , fevers, chills, nausea, vomiting, or other symptoms. Patient is followed by Dr. Cabrera for her seizures. In the ED, patient with BP 172/99. Labs significant for creatinine 1.09 and glucose 196, otherwise normal. UA with trace leukocytes, sent for culture. CT brain negative for acute process. Patient admitted and stroke protocol activated. Hospital Course 65 year old female with hx of minor seizures, hypertension, diabetes, peripheral neuropathy, and spinal stenosis presents to the ED after being referred by her PCP for right arm weakness onset this morning. Associated symptoms of high blood pressure (176 systolic), headache, right hand numbness, epistaxis, and fatigue. Admitted for possible CVA. MRI brain was negative for any acute process. Acute right sided weakness resolved. Neurology was consulted and believed this was not a CVA/TIA. Patient to follow up with PCP, Becky Leavitt in [address] Cabrera her neurologist when next available. Elevated blood pressures with headache and right sided weakness, present on admission. Improving. -Ddx: Possible CVA, can not rule out seizures since patient has hx of minor seizures with last one being last summer, MS also a possibility -NIHSS scale 9 -CXR, CT brain negative for any acute process -MRI brain negative for any acute process -Appreciate neurology consult with time and expertise - patient followed by Dr. Borden for her seizures -telemetry -Speech swallow passed -PT/OT eval pending Hypertension, present on admission. Active. -continue home dose HCTZ Diabetes mellitus Type 2 -metformin and glipizide held -medium correctional dose insulin protocol Spinal stenosis with chronic back pain -continue home dose meloxicam Hx of minor seizures -continue home dose lamotrigine Hypothyroidism -continue home med Allergic eyes -continue home med DVT prophy: Heparin SubQ, SCD GI prophy: not indicated CODE: FULL Dispo: Anticipate discharge in 1-2 days. Exam Vital Signs (Last) Date Time Temp Pulse Resp B/P Pulse Ox O2 Delivery O2 Flow Rate FiO2 09/11/16 05:50 65 09/11/16 04:28 36.7 16 161/84 96 Room Air Exam Gen: NAD, sitting up in bed eating her breakfast HEENT: NCAT. PERRL, EOMI No sclera icterus. Neck supple, pink mucous membranes Cardio: Regular rate and rhythm, no murmurs appreciated. . Lungs: CTAB Abd: Soft, obese, non-tender, normal bowel tones Ext: No edema, no clubbing. Skin: Warm, dry and intact Psych: Alert and oriented, normal speech, normal mood and affect Neuro: CN II-XII grossly intact. No focal deficits. Test 09/09/16 10:20 09/09/16 10:38 09/09/16 12:07 09/10/16 05:10 Neutrophils (%) (Auto) 74.3% (40-74) Lymphocytes (%) (Auto) 15.5% (14-46) Monocytes (%) (Auto) 6.9% (4-12) Eosinophils (%) (Auto) 2.0% (0-5) Basophils (%) (Auto) 0.5% (0-3) Total Bilirubin 0.7mg/dL (0.0-1.2) Aspartate Amino Transf (AST/SGOT) 20U/L (0-50) Alanine Aminotransferase (ALT/SGPT) 17U/L (0-32) Alkaline Phosphatase 89U/L (25-165) Total Protein 6.9g/dL (6.4-8.4) Albumin 4.4g/dL (3.4-5.0) Prothrombin Time 10.0sec (8.1-12.5) Prothromb Time International Ratio 0.94ratio Urine Color Yellow (YELLOW) Urine Appearance Hazy (CLEAR,HAZY) Urine pH 6.0 (5.0-8.0) Urine Specific Cammal 1.015 (1.003-1.035) Urine Protein Negativemg/dL (NEG,TRACE) Urine Glucose (UA) 100mg/dL (NEGATIVE) Urine Ketones Negativemg/dL (NEGATIVE) Urine Occult Blood Negative (NEGATIVE) Urine Nitrite Negative (NEGATIVE) Urine Bilirubin Negative (NEGATIVE) Urine Urobilinogen Normalmg/dL (NORMAL) Urine Leukocyte Esterase Trace (NEGATIVE) Urine RBC 0-2/hpf (0-2) Urine WBC 0-5/hpf (0-5) Urine Epithelial Cells Occasional/hpf (NONE-MOD) Urine Crystals None seen (NONE SEEN) Urine Bacteria Moderate/hpf (NONE-FEW) Urine Hyaline Casts None/lpf (NONE) Urine Granular Casts None seen (NONE SEEN) Urine Waxy Casts None seen (NONE SEEN) Urine Red Blood Cell Casts None seen (NONE SEEN) Urine White Blood Cell Casts None seen (NONE SEEN) Urine Mucus None seen (None Seen) Urine Trichomonas None seen (NONE SEEN) Urine Yeast None (NONE SEEN) Urinalysis Comment None Urine Culture Reflexed Indicated Hemoglobin A1c 6.1% (4.8-5.6) Thyroid Stimulating Hormone (TSH) 0.998uIU/mL (0.450-4.500) Test 09/11/16 05:20 White Blood Count 7.4th/mm3 (3.8-10.1) Red Blood Count 4.83mil/mm3 (3.90-5.20) Hemoglobin 13.8g/dL (12.0-15.6) Hematocrit 40.3% (35.0-46.0) Mean Corpuscular Volume 83.4fL (81-100) Mean Corpuscular Hemoglobin 28.6pg (27.0-35.0) Mean Corpuscular Hemoglobin Concent 34.2% (32.0-37.0) Red Cell Distribution Width 13.1% (12.3-15.4) Platelet Count 188bil/L (150-400) Sodium Level 138mEq/L (134-144) Potassium Level 3.9mEq/L (3.5-5.2) Chloride Level 96mEq/L (97-108) Carbon Dioxide Level 28mmol/L (18-29) Blood Urea Nitrogen 26mg/dL (8-27) Creatinine 1.10mg/dL (0.57-1.00) Estimat Glomerular Filtration Rate 72mL/min (>59) Glucose Level 148mg/dL (60-99) Calcium Level 9.2mg/dL (8.5-10.1) Discharge Medications Discharge Medications Aspirin (Aspirin) 81 Mg Tablet 81 MG PO HS (Reported) Cholecalciferol (Vitamin D3) (Vitamin D3) 2,000 Unit Capsule 2,000 UNIT PO DAILY (Reported) Cyanocobalamin (Vitamin B-12) (Vitamin B-12) 500 Mcg Tab.subl 500 MCG SL DAILY ( Reported) Estradiol (Vagifem) 10 Mcg Tablet 10 MCG VAGINAL W,F (Reported) Glipizide (Glipizide) 5 Mg Tablet 2.5 MG PO BID (Reported) Hydrochlorothiazide (Hydrochlorothiazide) 25 Mg Tablet 25 MG PO BID (Reported) Lamotrigine (Lamotrigine) 100 Mg Tablet 200 MG PO BID (Reported) Levothyroxine (Levothyroxine) 75 Mcg Tablet 75 MCG PO QAM (Reported) Lisinopril (Lisinopril) 5 Mg Tablet 5 MG PO DAILY Prescribed by: MALORIE COLLINS DO Magnesium Oxide (Magnesium) 250 Mg Tablet 250 MG PO BID (Reported) Meloxicam (Meloxicam) 7.5 Mg Tablet 7.5 MG PO BID (Reported) Metformin (Metformin) 500 Mg Tablet 500 MG PO BID (Reported) Paroxetine (Paroxetine) 10 Mg Tablet 10 MG PO QAM (Reported) Potassium Chloride (Potassium Chloride) 10 Meq Capsule.er 10 MEQ PO QAM ( Reported) As needed Cetirizine HCl (Zyrtec) 10 Mg Capsule 10 MG PO HS PRN PRN For Congestion ( Reported) Epinephrine (Epinephrine) 0.3 Mg/0.3 Ml Auto.injct 0.3 MG IJ ONCE PRN PRN For Anaphyllaxis (Reported) Olopatadine HCl (Olopatadine HCl) 0.1 % Drops 1 DROP AFFECT_EYE BID PRN PRN For Eye Irritation (Reported) Sumatriptan Succinate (Imitrex) 50 Mg Tablet 50 MG PO DIRECTED PRN PRN For Headache (Reported) Tizanidine (Tizanidine) 2 Mg Tablet 2 MG PO DIRECTED PRN PRN For Pain ( Reported) Additional med instructions New medication: Lisinopril 5mg PO daily Followup Plan Follow-up plan Patient to have outpatient physical therapy. Discharge Diet: Diabetic Discharge Activity: Limited until seen by PCP Patient Instructions We have added one new medication during this hospitalization. Lisinopril 5mg one daily by mouth. Please follow up with your PCP, Becky Leavitt in 2 weeks. You have an appointment with your neurologist, Dr. Cabrera in November, please call to see if you can get in sooner if symptoms persist. Go to the ED if you have any sudden onset of headaches, vision changes, unilateral weakness or chest pain. Follow-up Provider: Becky Leavitt Follow-up with PCP in: 2 weeks Time spent 40 minutes Attending Statement I have seen and evaluated patient at bedside and directly supervised care provided by resident physician. I agree with above documentation. Malorie Collins DO Sep 11, 2016 11:37 Sharif Rousseau DO Sep 11, 2016 15:08
--- NOTE | 2016-09-11 13:03 | NUR ---
Social Work: Initial assessment / D/C Data: Pt is a 65 y/o female admitted for CVA and seizure. Pt's PCP is Dr Leavitt, pt's insurance is Medicare with [facility] supp. EMR reviewed. Readmit score is 1. BODY FORMER met with pt at bedside, role explained. Pt states that she lives with her in a single story home where she uses a cane regularly. Pt reports that she does not drive, has no history of HH or SNF, no LTC or VA benefits, and is not a caregiver for another. Pt states her will drive her home at d/c. No further d/c planning needed. BODY FORMER will continue to follow if needs arise. Assessment: Pt who is independent at baseline. Plan: Pt will d/c home via POV with spouse today. No further d/c planning needed. BODY FORMER will continue to follow if needs arise. OLIVA Shine Addendum: 09/11/16 at 1305 by PRASANNA OLSON Amended: Links added.
== END 2016-09-11 13:00 | disposition home or self-care (01) | DRG 305 ==
LOC: SED 10:12 → OFED 13:48 → INTOOBSV 13:48 → OBSVTOIN 13:48 → MPC 15:59
PROVIDERS: ADMIT Family Medicine; ATTEND Family Medicine
DX: I10 Essential (primary) hypertension (principal); R53.1 Weakness; E11.9 Type 2 diabetes mellitus without complications; E03.9 Hypothyroidism, unspecified; G40.909 Epilepsy, unspecified, not intractable, without status epilepticus; G89.29 Other chronic pain; Z79.4 Long term (current) use of insulin